=== PATIENT | male | born 1985 | race Caucasian/White ===

== ENCOUNTER 2018-12-03 01:11 | Emergency (ER) | payer BC ==
[~2018-12-03] VITALS: Ht 182.9 cm; Wt 74.8 kg
[2018-12-03 02:59] LABS: HEMATOCRIT 46.5 % (42.0-52.0); HEMOGLOBIN 16.2 gm/dL (14.0-18.0); MCH 30.7 pg (26.0-34.0); MCHC 34.9 g/dL (28.0-37.0); PLATELET COUNT 402 thou/uL (150-400); RBC 5.29 mil/uL (4.50-6.00); RDW 13.2 % (10.5-14.5); WBC 22.3 thou/uL (4.0-11.0)
[2018-12-03 03:04] LABS: ANION GAP 10 mmol/L (7-16); BUN 14 mg/dL (7-18); CALCIUM 9.6 mg/dL (8.5-10.1); CHLORIDE 93 mmol/L (98-107); CO2 30 mmol/L (21-32); CREATININE 1.2 mg/dL (0.7-1.3); GLUCOSE 100 mg/dL (74-106); POTASSIUM 3.9 mmol/L (3.5-5.1); SODIUM 133 mmol/L (136-145)
[2018-12-03 03:13] LABS: TROPONIN-I <0.06 ng/mL (<0.06)
[2018-12-03 03:36] LABS: ABSOLUTE NEUTROPHILS 19.8 thou/uL (1.4-8.2)
[2018-12-03 03:37] LABS: ANISOCYTOSIS 1+; PLATELET ESTIMATE INCREASED; POIKILOCYTOSIS 1+; POLYCHROMASIA 1+
[2018-12-03] MEDS ORDERED: VENTOLIN HFA 1818 GM INH (05:09)
[2018-12-03] MEDS ORDERED: SENNA-DOCUSATE1 EAC1 PO (05:09)
[2018-12-03] MEDS ORDERED: NORCO 7.5-3251 EACH PO (05:09)
[2018-12-03] MEDS ORDERED: AZITHROMYCIN 2250 MG PO (05:09)
[2018-12-03 05:49] VITALS: BP 112/68
--- NOTE | 2018-12-03 08:18 | EKG ---
[facility] [place] [address] ELECTROCARDIOGRAM REPORT Name: EDUARD HERNÁNDEZ Room #: DEP Miquel#: [id number] ������������������ Admission: 12/03/18 ������������������ Attend Phys: Discharge: 12/03/18 ������������������ Date of : 81 Report #: [id number] ����������������������������������������������������������������� [id number] THIS REPORT FOR: //name// [facility] ED Test Date: 2018-12-03 Test Time: 02:50:02 Pat Name: EDUARD HERNÁNDEZ Department: Room: Gender: M [employer] Teacher: bradley : 1985 Requested By: Ok Kam Order Number: [id number] MD: Km Quezada Measurements Intervals [place] Rate: 106 P: 71 PA: 133 QRS: 59 QRSD: 96 T: 58 QT: 321 QTc: 427 Interpretive Statements Sinus tachycardia RSR' in V1 or V2, probably normal variant No previous ECG available for comparison Electronically Signed On 12-03-2018 8:18:17 CDT by Km Quezada [email or web address] ��������������������������������������������� <ELECTRONICALLY SIGNED> ���������������������������������������� By: Km Quezada MD, [facility] ��������������������������������������������� 12/03/18 0818 0250 0250 Km Quezada MD, FACC /EPI
== END 2018-12-03 05:50 | disposition home or self-care (01) ==
LOC: ER 01:11
PROVIDERS: Emergency Medicine
DX: J18.8 Other pneumonia, unspecified organism (principal); J96.01 Acute respiratory failure with hypoxia; F17.200 Nicotine dependence, unspecified, uncomplicated